=== PATIENT | male | born 1945 | race Hispanic/Latino ===

== ENCOUNTER 2019-03-20 17:06 | Emergency (ER) | payer OTHER, MEDICARE ==
[2019-03-20] MEDS ORDERED: TETANUS/DIPHTHERIA TOXOID [ADULT] 0.5 ML VIAL IM ONE (17:49)
[2019-03-20] MEDS ORDERED: LIDOCAINE HCL-MPF 1% 2ML VIAL ONE (18:20)
[2019-03-20] MEDS ORDERED: CEFTRIAXONE SODIUM 1 GM ONE (18:20)
== END 2019-03-20 18:34 | disposition home or self-care (01) ==
LOC: EDH 17:06
DX: S60.512A Abrasion of left hand, initial encounter (principal); S60.511A Abrasion of right hand, initial encounter; I10 Essential (primary) hypertension; E11.9 Type 2 diabetes mellitus without complications; W55.03XA Scratched by cat, initial encounter; Y93.89 Activity, other specified; Y92.89 Other specified places as the place of occurrence of the external cause; Y99.8 Other external cause status
CPT/HCPCS: 90471; 90714; 96372; 99284; J0696; J3490

== ENCOUNTER 2020-11-27 07:09 | Day surgery (SDC) | payer OTHER, MEDICARE ==
[2020-11-21 11:11] LABS: HEMATOCRIT 37.4 % (42-54); MEAN CORPUSCULAR HEMOGLOBIN 30.8 pg (27.0-33.0); MEAN CORPUSCULAR VOLUME 90.6 fL (79-99); PLATELET COUNT (AUTO) 232 K/uL (130-400); RED BLOOD CELL COUNT(AUTO) 4.13 MIL/uL (4.50-6.20); RED CELL DISTRIBUTION WIDTH 12.7 % (11.0-15.5); WHITE BLOOD COUNT (AUTO) 7.1 K/uL (4.8-10.8)
[2020-11-21 11:12] LABS: POTASSIUM 4.2 mmol/L (3.5-5.1)
[2020-11-21 11:39] LABS: INR 0.99 (0.85-1.15); PROTHROMBIN TIME 10.8 SEC (9.6-11.6)
[2020-11-21 11:40] LABS: PARTIAL THROMBOPLASTIN TIME 28.1 SEC (26.3-35.5)
[2020-11-21 11:42] LABS: LYMPHOCYTES % (MANUAL) 27 % (22-44); MAN.DIFF COMMENT-IMPRESSION MANUAL DIFFERENTIAL; MONOCYTES % (MANUAL) 7 % (2-9); PLATELET MORPHOLOGY COMMENT ADEQUATE; SEGMENTED NEUTROPHILS % 66 % (40-70)
[2020-11-21 12:03] VITALS: BP 140/67
[2020-11-27] VITALS (17 sets, daily range): BP systolic 94–139; BP diastolic 53–76
[~2020-11-27] VITALS: Ht 160 cm; Wt 65.8 kg
[~2020-11-27 07:09] MED LIST: ASPI-1197 PO; ATOR10TA69 PO; CEFAZOLIN SODIUM 1 GM VIAL IVP SCH; GLIP5TAB11 PO; LISI2.5T2 PO; METF-444 PO; MV-M1TAB20 PO; NIAC250T9 PO
[2020-11-27] MEDS ORDERED: SODIUM CHLORIDE 0.9% 1000ML 1,000 ML IV ONE (08:23)
[2020-11-27] MEDS ORDERED: DEXAMETHASONE SOD PHOSPHATE 10MG/ML 1ML VIAL ONE (09:38)
[2020-11-27] MEDS ORDERED: PROPOFOL 10 MG/ML 20ML VIAL IV ONE (09:38)
[2020-11-27] MEDS ORDERED: SUCCINYLCHOLINE 200MG/10ML SYR ONE (09:38)
[2020-11-27] MEDS ORDERED: MIDAZOLAM HCL 1 MG/ML 2ML VIAL ONE (09:38)
[2020-11-27] MEDS ORDERED: LIDOCAINE PF 100MG/5ML (2%) SYRINGE 5ML ONE (09:38)
[2020-11-27] MEDS ORDERED: FENTANYL CITRATE PF 50 MCG/1 ML 2ML VIAL ONE (09:39)
[2020-11-27] MEDS ORDERED: BUPIVACAINE/PF 0.25% 30ML VIAL IJ ONE (10:07)
[2020-11-27] MEDS ORDERED: BACITRACIN 28.4 GM OINT TP ONE (10:07)
== END 2020-11-27 12:30 | disposition home or self-care (01) ==
LOC: DAH 07:09
PROVIDERS: ATTEND Urology
DX: N43.3 Hydrocele, unspecified (principal); Z20.822 Contact with and (suspected) exposure to COVID-19; I10 Essential (primary) hypertension; E78.5 Hyperlipidemia, unspecified; E11.9 Type 2 diabetes mellitus without complications; Z98.890 Other specified postprocedural states; Z83.3 Family history of diabetes mellitus; Z79.899 Other long term (current) drug therapy; Z79.01 Long term (current) use of anticoagulants
CPT/HCPCS: 36415; 55040; 71045; 80048; 82948 ×2; 85025; 85610; 85730; 87635; 93005; A4215; A4221; A4222; A4223; A4606; A4663; A4930; A6260; C9803; J0330; J0690; J1100; J2001; J2250; J2704; J3010; J3490; J7030 ×2

== ENCOUNTER 2021-08-11 11:20 | Emergency (ER) | payer OTHER, MEDICARE ==
[~2021-08-11] VITALS: Ht 165.1 cm; Wt 65.8 kg
[~2021-08-11 11:20] MED LIST changes: -CEFAZOLIN SODIUM 1 GM VIAL IVP SCH; +LISI2.5T13 PO; -LISI2.5T2 PO
[2021-08-11 14:41] VITALS: BP 144/60
[2021-08-11] MEDS ORDERED: TETANUS/DIPHTHERIA TOXOID [ADULT] 0.5 ML VIAL IM ONE (16:00)
[2021-08-11] MEDS ORDERED: LIDOCAINE HCL MPF 1% 5ML VIAL IM SCH (16:00)
[2021-08-11] MEDS ORDERED: BACI30OI6 TP (16:58)
== END 2021-08-11 17:17 | disposition home or self-care (01) ==
LOC: EDH 11:20
DX: S81.012A Laceration without foreign body, left knee, initial encounter (principal); E11.9 Type 2 diabetes mellitus without complications; I10 Essential (primary) hypertension; Z79.82 Long term (current) use of aspirin; Z79.84 Long term (current) use of oral hypoglycemic drugs; W31.89XA Contact with other specified machinery, initial encounter; Y93.H2 Activity, gardening and landscaping; Y92.096 Garden or yard of other non-institutional residence as the place of occurrence of the external cause; Y99.8 Other external cause status
CPT/HCPCS: 12002; 73562; 90471; 90714; 99283; J3490

== ENCOUNTER 2022-01-08 19:18 | Emergency (ER) | payer OTHER, MEDICARE ==
[~2022-01-08] VITALS: Ht 167.6 cm; Wt 68.0 kg
[~2022-01-08 19:18] MED LIST changes: +BACI30OI6 TP
[2022-01-08 19:39] VITALS: BP 132/68
[2022-01-08] MEDS ORDERED: ACETAMINOPHEN 500 MG TABLET ONE (19:46)
[2022-01-08] MEDS ORDERED: ACETAMINOPHEN 500 MG TABLET PO ONE (20:00)
[2022-01-08] MEDS ORDERED: ACET-2247 PO (20:29)
== END 2022-01-08 20:34 | disposition home or self-care (01) ==
LOC: EDH 19:18
DX: B34.9 Viral infection, unspecified (principal); Z20.822 Contact with and (suspected) exposure to COVID-19; E11.9 Type 2 diabetes mellitus without complications; I10 Essential (primary) hypertension; Z79.899 Other long term (current) drug therapy; Z79.82 Long term (current) use of aspirin; Z79.84 Long term (current) use of oral hypoglycemic drugs; Z98.890 Other specified postprocedural states
CPT/HCPCS: 99283; 87635; 87804 ×2; C9803

== ENCOUNTER 2022-04-29 13:10 | Emergency (ER) | payer OTHER, MEDICARE ==
[~2022-04-29] VITALS: Ht 165.1 cm; Wt 65.3 kg
[~2022-04-29 13:10] MED LIST changes: +ACET-2247 PO
[2022-04-29] MEDS ORDERED: ACET-2247 PO (15:53)
[2022-04-29 15:55] VITALS: BP 137/77
== END 2022-04-29 15:59 | disposition home or self-care (01) ==
LOC: EDH 13:10
DX: S90.122A Contusion of left lesser toe(s) without damage to nail, initial encounter (principal); E11.9 Type 2 diabetes mellitus without complications; I10 Essential (primary) hypertension; E78.00 Pure hypercholesterolemia, unspecified; Z79.82 Long term (current) use of aspirin; Z79.899 Other long term (current) drug therapy; Z79.84 Long term (current) use of oral hypoglycemic drugs; X58.XXXA Exposure to other specified factors, initial encounter; Y93.89 Activity, other specified; Y92.89 Other specified places as the place of occurrence of the external cause; Y99.8 Other external cause status
CPT/HCPCS: 73660

== ENCOUNTER 2024-10-30 12:14 | Emergency (ER) | payer OTHER, MEDICARE ==
[~2024-10-30] VITALS: Ht 157.5 cm; Wt 63.5 kg
[~2024-10-30 12:14] MED LIST changes: -GLIP5TAB11 PO; +GLIP5TAB15 PO
--- NOTE | 2024-10-30 12:48 | EKG ---
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
[2024-10-30 13:06] LABS: BASOPHILS # (AUTO) 0.05 K/uL (0.00-0.20); BASOPHILS % (AUTO) 0.6 % (0.0-5.0); EOSINOPHILS # (AUTO) 0.26 K/uL (0.00-0.70); EOSINOPHILS % (AUTO) 3.2 % (0.0-8.0); HEMATOCRIT 42.1 % (42-54); IMMATURE GRANULOCYTE ABSOLUTE 0.04 K/uL (0-1); LYMPHOCYTES # (AUTO) 1.9 K/uL (1.0-4.8); LYMPHOCYTES % (AUTO) 22.7 % (21.0-51.0); MEAN CORPUSCULAR HGB CONC 33.3 g/dL (32.0-36.0); MEAN CORPUSCULAR VOLUME 93.3 fL (79-99); MONOCYTES # (AUTO) 0.7 K/uL (0.1-1.0); MONOCYTES % (AUTO) 8.7 % (3.0-13.0); NEUTROPHILS # (AUTO) 5.3 K/uL (1.8-7.7); NEUTROPHILS % (AUTO) 64.3 % (40.0-77.0); PLATELET COUNT (AUTO) 288 K/uL (130-400); RED BLOOD CELL COUNT(AUTO) 4.51 MIL/uL (4.50-6.20); RED CELL DISTRIBUTION WIDTH 12.6 % (11.0-15.5); WHITE BLOOD COUNT (AUTO) 8.2 K/uL (4.8-10.8)
--- NOTE | 2024-10-30 13:09 | ERN ---
General Chief Complaint: Weakness Stated Complaint: WEAKNESS Time Seen by MD: 12:16 Time Seen by Midlevel: 12:16 Source: patient History of Present Illness Initial Comments The patient is a 79-year-old male with a past medical history of type 2 diabetes, hypertension, and hyperlipidemia presenting to the emergency department for increased cough and congestion. The patient states his symptoms have been ongoing for one week and now developed generalized body weakness. He specifically denies any chest pain, shortness of breath, or any other symptoms at this time. Allergies: Coded Allergies: No Known Drug Allergies (Unverified Allergy, Unknown, 03/20/19) Home Meds Active Scripts Acetaminophen (Tylenol) 325 Mg Tablet, 650 MG PO QIDP, #50 TAB Prov:ALEXA LORA PA 04/29/22 Acetaminophen (Tylenol) 325 Mg Tablet, 650 MG PO Q4HPRN, #50 TAB Prov:ALEXA LORA 01/08/22 Bacitracin (Bacitracin) 28.4 Gm Oint...g., 28.4 GM TP 3XWK, #1 TUBE Prov:DANIELA PALACIOS PHYSICAL CHEMIST 08/11/21 Reported Medications Mv-Mn/Iron/FA/Herbal Cmplx#190 (Vitamin D3 Complete Caplet) 1 Each Tablet, 1 EACH PO DAILY, TAB 11/21/20 Glipizide (Glipizide) 5 Mg Tablet, 5 MG PO BID, TAB 11/21/20 Atorvastatin Calcium (Atorvastatin Calcium) 10 Mg Tablet, 10 MG PO HS, TAB 11/21/20 Lisinopril (Lisinopril) 2.5 Mg Tablet, 2.5 MG PO HS, TAB 11/21/20 Aspirin (Aspirin) 81 Mg Tab.chew, 81 MG PO DAILY, TAB.CHEW START ON Tuesday11/21/20 Metformin HCl (Metformin HCl) 500 Mg Tablet, 500 MG PO BID, TAB 2 TABLETS DAILY 11/21/20 Niacin (Niacin) 250 Mg Tablet, 250 MG PO BID, TAB 11/21/20 Past Medical History Past Medical History: Diabetes-Type II, High Cholesterol, Hypertension Past Surgical History: Other Surgical History Other: PROSTATE SX Family History Family History: Negative Social History Social History: Negative, Lives with family ROS Dictation CONSTITUTIONAL: Negative except for HPI HEAD/FACE: Negative except for HPI EENT: Negative except for HPI RESPIRATORY: Negative except for HPI GASTROINTESTINAL/ABDOMINAL: Negative except for HPI GENITOURINARY: Negative except for HPI MUSCULOSKELETAL: Negative except for HPI INTEGUMENTARY: Negative except for HPI NEUROLOGICAL/PSYCH: Negative except for HPI HEMATOLOGIC/LYMPHATIC: Negative except for HPI All Systems Negative, Except as noted above. 13 point review of systems assessed and all negative except for above. Physical Exam Physical Exam Dictation Vital Signs reviewed General Appearance: Alert, oriented x 3, no acute distress, well developed, nourished. Head and Face: non-traumatic. Eyes: PERRL, pink conjunctivas, eyelid no trauma, anterior chamber with arcus senilis. Ears: Pinnas intact and no signs of trauma or erythema ear canals clear and no discharge TM no erythema Nose: No discharge, no bleeding. Oropharynx: Mouth normal, tongue pink, pharynx clear,no erythema, tonsils no exudates, no abscesses noted, mucous membrane moist Neck: Supple, non-tender, no thyromegaly, no masses, no JVD, no bruits Breast:Deferred Chest:No tenderness, no crepitus, no paradoxical movement, no retractions Lungs:Clear, well-ventilated, symmetric, no rales, no wheezing, no rhonchi, no stridor, good breath sounds bilaterally Heart: Regular rate, regular rhythm, no murmur, no gallops Vascular: no peripheral edema, Abdomen: Soft, positive bowel sounds, nondistended, no guarding, nontender, no rebound, no masses no hepatomegaly, no splenomegaly, no Arenas's sign, no hernias. Rectal: Deferred Genital: Deferred Neurological: Normal speech, motor function intact, sensory function intact Musculoskeletal: Neck nontender, full range of motion, back nontender, full range of motion, Extremities: nontender, full range of motion Skin: Color pink, dry, no turgor, no rash, no lacerations, no abrasions, no contusions. Lymphatic: Deferred Results Laboratory and Microbiology Lab and Micro Result Laboratory Tests Test 10/30/24 12:55 White Blood Count 8.2 K/uL (4.8-10.8) Red Blood Count 4.51 MIL/uL (4.50-6.20) Hemoglobin 14.0 g/dL (14.0-18.0) Hematocrit 42.1 % (42-54) Mean Corpuscular Volume 93.3 fL (79-99) Mean Corpuscular Hemoglobin 31.0 pg (27.0-33.0) Mean Corpuscular Hemoglobin Concent 33.3 g/dL (32.0-36.0) Red Cell Distribution Width 12.6 % (11.0-15.5) Platelet Count 288 K/uL (130-400) Mean Platelet Volume 9.2 fL (7.5-10.5) Immature Granulocyte % (Auto) 0.5 % (0-1) Neutrophils (%) (Auto) 64.3 % (40.0-77.0) Lymphocytes (%) (Auto) 22.7 % (21.0-51.0) Monocytes (%) (Auto) 8.7 % (3.0-13.0) Eosinophils (%) (Auto) 3.2 % (0.0-8.0) Basophils (%) (Auto) 0.6 % (0.0-5.0) Neutrophils # (Auto) 5.3 K/uL (1.8-7.7) Lymphocytes # (Auto) 1.9 K/uL (1.0-4.8) Monocytes # (Auto) 0.7 K/uL (0.1-1.0) Eosinophils # (Auto) 0.26 K/uL (0.00-0.70) Basophils # (Auto) 0.05 K/uL (0.00-0.20) Absolute Immature Granulocyte (auto 0.04 K/uL (0-1) Nucleated Red Blood Cells 0.0 % (0.0-0.19) Sodium Level 138 mmol/L (136-145) Potassium Level 4.2 mmol/L (3.5-5.1) Chloride Level 103 mmol/L (101-111) Carbon Dioxide Level 25 mmol/L (21-32) Blood Urea Nitrogen 23 mg/dL (7-18) H Creatinine 1.1 mg/dL (0.5-1.3) Glomerular Filtration Rate Calc 69 mL/min (>90) Random Glucose 139 mg/dL (70-105) H Total Calcium 9.4 mg/dL (8.5-10.1) Magnesium Level 1.80 mg/dL (1.80-2.40) Total Creatine Kinase 259 U/L (21-232) H Troponin I High Sensitivity < 4 ng/L (4-75) L Labs Reviewed?: Yes MDM MDM: 79-year-old male presenting to the ER with a an increasing cough. Patient concern for pneumonia. I obtain basic labs which are unremarkable. Chest x-ray does not show any evidence of pneumonia. We will treat for bronchitis outpatient. Patient is stable for discharge Differential diagnosis: Electrolyte abnormality, pneumonia, bronchitis There are no social concerns with this patient. Prescription drug management Prescriptions will include: Tessalon Perles, azithromycin, Medrol pack Medical management and examination interpretation discussions were had by me with other qualified healthcare professionals as indicated for the patient's care. ED Course Orders Procedure Category Date Status Time 12 Lead Ekg Tracing- EKG 10/30/24 Complete Technical 12:34 Cbc With Differential LAB 10/30/24 Complete 12:34 Basic Metabolic Panel LAB 10/30/24 Complete 12:34 Chest 1vw RAD 10/30/24 Resulted 12:34 Magnesium LAB 10/30/24 Complete 12:34 Creatine Kinase, Total LAB 10/30/24 Complete 12:34 Troponin I High LAB 10/30/24 Complete Sensitivity 12:34 Vital Signs Date Time Temp Pulse Resp B/P (MAP) Pulse Ox O2 Delivery O2 Flow Rate FiO2 10/30/24 12:30 98.8 80 20 160/83 95 0 DX & DISP Disposition: Discharge Departure Impression: Primary Impression: Acute bronchitis Condition: Stable Scripts Methylprednisolone (Medrol) 4 Mg Tab.ds.pk 1 TAB PO AD for 6 Days, #21 TAB 0 Refills 6 on day 1 then reduce by one tablet daily until gone Prov: ANJALI GOFF 10/30/24 Azithromycin (Azithromycin) 250 Mg Tablet 1 TAB PO AD for 5 Days, #6 TAB 0 Refills 2 the first day followed by 1 for days 2-5 Prov: ANJALI GOFF 10/30/24 Benzonatate (Tessalon Perles) 100 Mg Cap 100 MG PO TID for cough, #30 CAP 0 Refills Prov: ANJALI GOFF 10/30/24 Additional Instructions: Your blood work today is unremarkable. You are not anemic. Your electrolytes are normal. Your kidney function is normal. Your cardiac enzymes are negative. Your chest x-ray does not show any evidence of pneumonia. Please follow up with your primary care doctor in 2-3 days for repeat evaluation. I have provided you with several medications to help improve your cough over the next couple of days. Referrals: WANDY RESTREPO M.D. (PCP) Time of Disposition: 13:44 I have reviewed the case, and I agree with, Diagnosis and Plan I performed the substantive portion of the visit. I have reviewed and personally made and approve the management plan that is documented in the note by myself or the TITO. I acknowledge for responsibility for the patient's management plan. ANJALI GOFF October 30, 2024 13:09
[2024-10-30 13:10] LABS: CREATININE 1.1 mg/dL (0.5-1.3); POTASSIUM 4.2 mmol/L (3.5-5.1)
[2024-10-30 13:16] LABS: MAGNESIUM 1.8 mg/dL (1.80-2.40)
--- NOTE | 2024-10-30 13:18 | HMCIMG ---
Exam Type: CHEST 1VW Clinical Information: cough,cp Comparison: None Findings: The lungs are clear of infiltrates. The heart is normal in size. The bony and soft tissue structures of the chest are unremarkable. Impression: Clear lungs.
[2024-10-30] MEDS ORDERED: METH4TAB3 PO (13:48)
[2024-10-30] MEDS ORDERED: AZIT250T9 PO (13:48)
[2024-10-30] MEDS ORDERED: BENZ-39 PO (13:48)
[2024-10-30] MEDS: BENZONATATE 100 MG CAPSULE PO ONE (14:05)
[2024-10-30] MEDS: acetaMINOPHEN WITH coDEINE 1 TAB TAB PO ONE (14:07)
[2024-10-30 14:13] VITALS: BP 127/73; PULSE 77; RESP 18; TEMP 98.7; O2SAT 97
== END 2024-10-30 14:14 | disposition home or self-care (01) ==
LOC: EDH 12:14
DX: J20.9 Acute bronchitis, unspecified (principal); E11.9 Type 2 diabetes mellitus without complications; E78.00 Pure hypercholesterolemia, unspecified; I10 Essential (primary) hypertension; Z79.82 Long term (current) use of aspirin; Z79.84 Long term (current) use of oral hypoglycemic drugs
CPT/HCPCS: 36415; 71045; 80048; 82550; 83735; 84484; 85025; 93005; 99285

== ENCOUNTER → 2025-03-21 | Outpatient (CLI) | payer OTHER, MEDICARE ==
[~2025-03-21] MED LIST changes: +AZIT250T9 PO; +BENZ-39 PO; +METH4TAB3 PO
--- NOTE | 2025-03-21 16:22 | HMCIMG ---
Exam: NONCONTRAST CT BRAIN REASON: Other amnesia. COMPARISON: None. TECHNIQUE: Images are obtained from vertex to the skull base. The exam was performed without IV contrast. FINDINGS: There is normal appearing brain parenchyma. There are no focal mass lesions. There is is no evidence of intracranial hemorrhage or acute stroke. Ventricles and sulci appear normal. Posterior fossa and brainstem structures are unremarkable. Paranasal sinuses and remaining extracranial soft tissues appear normal as well.There is global atrophy. IMPRESSION: 1. No acute intracranial process 2. Global atrophy. CT was performed with one or more following dose reduction techniques: automated exposure control, adjustment of the mA and kv according to patient's size, or use of a iterative reconstruction technique.
== END | disposition home or self-care (01) ==
LOC: RAH 11:22
PROVIDERS: ATTEND Family Medicine
DX: G31.9 Degenerative disease of nervous system, unspecified (principal); R41.3 Other amnesia
CPT/HCPCS: 70450

== ENCOUNTER → 2025-04-19 | Outpatient (CLI) | payer OTHER, MEDICARE ==
--- NOTE | 2025-04-19 15:28 | HMCIMG ---
EXAM: CT Chest Without IV contrast. CLINICAL HISTORY: ABN WEIGHT LOSS TECHNIQUE: Axial computed tomography images of the chest without intravenous contrast. COMPARISON: None provided. FINDINGS: LUNGS: Tiny 3 mm calcified nodule in the medial basal segment of right lower lobe.No pulmonary mass. PLEURAL SPACES: No evidence of pneumothorax. No pleural effusion. HEART: Aortic valve calcification.No cardiomegaly. No significant pericardial effusion. LYMPH NODES: Small calcified mediastinal lymph nodes, including precarinal, subcarinal, and right peribronchial nodes. UPPER ABDOMEN: The upper abdominal solid organs are unremarkable. BONES: No acute osseous abnormality. IMPRESSION: 1. 3 mm calcified nodule in the medial basal segment of right lower lobe, likely benign. 2. Small calcified mediastinal lymph nodes, including precarinal, subcarinal, and right peribronchial nodes. 3. Aortic valve calcification. 4. No evidence of pulmonary mass, pneumothorax, or pleural effusion. 5. No acute osseous abnormality. /[place]
== END | disposition home or self-care (01) ==
LOC: RAH 08:35
PROVIDERS: ATTEND Family Medicine
DX: I35.8 Other nonrheumatic aortic valve disorders (principal); R59.0 Localized enlarged lymph nodes; R91.1 Solitary pulmonary nodule; R63.4 Abnormal weight loss; R94.4 Abnormal results of kidney function studies; Z87.898 Personal history of other specified conditions
CPT/HCPCS: 71250

== ENCOUNTER → 2025-04-25 | Outpatient (CLI) | payer OTHER, MEDICARE ==
[~2025-04-25] MED LIST changes: +GADOTERATE MEGLUMINE 10 MMOL/20 ML VIAL IV ONE
--- NOTE | 2025-04-25 22:06 | HMCIMG ---
EXAM: MR Pelvis with Intravenous Contrast. CLINICAL HISTORY: benign prostatic hyperplasia. TECHNIQUE: Multiplanar magnetic resonance images of the pelvis with intravenous contrast. CONTRAST: With. COMPARISON: None provided. FINDINGS: BOWEL: Grossly unremarkable. No obstruction. The bilateral rectoprostatic angles are clear. BLADDER: Mild thickening of the urinary bladder wall is present measuring 4 mm, suggestive of sequelae of chronic bladder outflow obstruction. No stone. REPRODUCTIVE: The prostate is enlarged measuring 4.7 x 4.8 x 2.4 cm approximately (volume 28 mL) . The transition zone shows heterogeneous appearance with lobulated architecture containing multiple nodules . The largest of these nodules in the transition zone is seen in the left lateral aspect of the gland measuring 2 x 2.3 x 2 cm with well defined T2 hyperintense capsule. The peripheral gland does not show any areas of T2 hypointense nodule except linear T2 hypointensities, which may be related to prior chronic inflammation. There is a tiny 4 mm sized nodule appearing T2 hyperintense with rim of hypointensity visualized at 6 o'clock position in the peripheral gland, which may represent midline prostatic utricular cyst with the location close to the prostatic urethra. Post-contrast, heterogeneous enhancement of the transition zone is present. No enhancing nodules in the peripheral gland noted. The seminal vesicles are clear. LYMPH NODES: No pelvic or inguinal lymphadenopathy. BONES: No acute fracture. Degenerative changes in the visualized extent of the lumbar spine. Marginal acetabular osteophytes are present bilaterally with thinning of the articular cartilage superolaterally, consistent with degenerative arthritis. 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 No trochanteric bursal effusion. IMPRESSION: 1. Mild prostatomegaly with heterogeneous appearing transition zone, PI-RADS 2. PI-RADS I of the peripheral gland. 2. Mild thickening of the urinary bladder wall, suggestive of sequelae of chronic bladder outflow obstruction. 3. 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 No trochanteric bursal effusion. /[place]
== END | disposition home or self-care (01) ==
LOC: RAH 13:58
PROVIDERS: ATTEND Family Medicine
DX: N40.1 Benign prostatic hyperplasia with lower urinary tract symptoms (principal); R97.20 Elevated prostate specific antigen [PSA]; M76.02 Gluteal tendinitis, left hip; M76.01 Gluteal tendinitis, right hip; M47.816 Spondylosis without myelopathy or radiculopathy, lumbar region; M25.752 Osteophyte, left hip; M25.751 Osteophyte, right hip; N32.89 Other specified disorders of bladder
CPT/HCPCS: 72197; A9575